=== PATIENT | male | born 1960 | race Caucasian/White ===

== ENCOUNTER → 2021-07-16 | Emergency (ER) | payer OTHER | LOC: ER 13:42 | DX: H57.10 Ocular pain, unspecified eye (principal); Z88.0 Allergy status to penicillin; Z53.21 Procedure and treatment not carried out due to patient leaving prior to being seen by health care provider ==

== ENCOUNTER 2021-07-17 09:29 | Emergency (ER) | payer OTHER ==
[~2021-07-17] VITALS: Ht 177.8 cm; Wt 141.5 kg
[2021-07-17 10:43] LABS: ABSOLUTE NEUTROPHILS 4.6 thou/uL (1.4-8.2); MONOCYTES 9.1 % (1.0-8.0)
[2021-07-17 10:46] LABS: BASOPHILS 0.8 % (0.0-2.0); EOSINOPHILS 1.8 % (0.0-3.0); HEMATOCRIT 50.7 % (42.0-52.0); LYMPHOCYTES 31.7 % (24.0-44.0); MCH 27.8 pg (26.0-34.0); MCHC 33.6 g/dL (28.0-37.0); MCV 82.8 fL (80.0-100.0); PLATELET COUNT 272 thou/uL (150-400); POLYS 56.6 % (36.0-66.0); RBC 6.12 mil/uL (4.50-6.00); RDW 14.7 % (10.5-14.5); WBC 8.1 thou/uL (4.0-11.0)
[2021-07-17 11:18] LABS: CALCIUM 8.9 mg/dL (8.5-10.1); CREATININE 0.9 mg/dL (0.7-1.3)
[2021-07-17 11:23] LABS: POTASSIUM 4.5 mmol/L (3.5-5.1)
[2021-07-17 11:31] LABS: TOTAL BILIRUBIN 1.5 mg/dL (0.2-1.0); TOTAL PROTEIN 7.9 g/dL (6.4-8.2)
[2021-07-17 13:25] VITALS: BP 124/84
--- NOTE | 2021-07-19 12:15 | EKG ---
[place] [address] [place] [address] ELECTROCARDIOGRAM REPORT Name: DANIKA SMITH Room #: DEP Doris#: [id number] Admission: 07/17/21 Attend Phys: Discharge: 07/17/21 Date of : 64 Report #: [id number] [facility] ED Test Date: 2021-07-17 Test Time: 10:17:51 Pat Name: DANIKA SMITH Department: Room: Gender: M Public Health Specialist: unknown : 1960 Requested By: Randall Herrera Order Number: [id number] MD: Kwabena Keane Measurements Intervals [place] Rate: 63 P: 22 [place]: 167 QRS: 27 QRSD: 104 T: QT: 403 QTc: 413 Interpretive Statements Sinus rhythm Nonspecific T wave abnormality Baseline wander in lead(s) I,III,aVL No previous ECG available for comparison Electronically Signed On 07-19-2021 12:15:29 CDT by Kwabena Keane [email or web address] <ELECTRONICALLY SIGNED> By: Kwabena Keane MD, [facility] 07/19/21 1215 [id number] Kwabena Keane MD, [facility] /EPI
== END 2021-07-17 13:25 | disposition home or self-care (01) ==
LOC: ER 09:29
PROVIDERS: Emergency Medicine
DX: H49.01 Third [oculomotor] nerve palsy, right eye (principal); Z88.0 Allergy status to penicillin

== ENCOUNTER → 2021-08-01 | Outpatient (CLI) | payer OTHER | LOC: MRI 08:50 | PROVIDERS: ATTEND Nurse Practitioner | DX: I67.82 Cerebral ischemia (principal) ==